=== PATIENT | female | born 1950 | race Two or more races ===

== ENCOUNTER 2023-02-11 14:05 | Emergency (ER) | payer OTHER ==
[~2023-02-11] VITALS: Ht 154.9 cm; Wt 66.7 kg
[2023-02-11] MEDS ORDERED: ZESTRIL2.5 MG PO (15:11)
[2023-02-11] MEDS ORDERED: LIPITOR40 M1 PO (15:12)
[2023-02-11] MEDS ORDERED: ZIAC 2.5-6.251 EACH (17:25)
[2023-02-11] MEDS ORDERED: MOTRIN IB200 MG PO (20:03)
== END 2023-02-11 20:31 ==
LOC: ER 14:05
DX: S89.82XA Other specified injuries of left lower leg, initial encounter (principal); W18.39XA Other fall on same level, initial encounter; Y93.89 Activity, other specified; Y92.481 Parking lot as the place of occurrence of the external cause; S89.81XA Other specified injuries of right lower leg, initial encounter; S69.81XA Other specified injuries of right wrist, hand and finger(s), initial encounter; I10 Essential (primary) hypertension; E78.00 Pure hypercholesterolemia, unspecified
CPT/HCPCS: 73110; 73130; 73560; 96372; 99284; J1885